=== PATIENT | male | born 1970 | race Caucasian/White ===

== ENCOUNTER → 2017-05-11 | Outpatient (CLI) | payer BC ==
[2016-01-26 15:57] VITALS: BP 137/95
[~2017-05-11] MED LIST: IOHEXOL 240 MG/ML 50ML VIAL. ONE; IOHEXOL 240 MG/ML 50ML VIAL. PO ONE; IOHEXOL 300 MG/ML 75 ML VIAL. IV ONE
--- NOTE | 2017-05-11 12:22 | RAD ---
CT of the abdomen and pelvis with contrast, 05/11/2017: History: Right lower quadrant pain Multidetector CT imaging was performed following oral and IV administration of contrast. No hepatic abnormality is detected. The gallbladder is unremarkable. No pancreatic abnormality is seen. The spleen is of normal size. The kidneys are unremarkable. No adrenal abnormality is detected. The abdominal aorta is of normal caliber. No abdominal or pelvic adenopathy is seen. Several small prostatic calcifications are noted. The bowel loops are not dilated. The appendix is not definitively visualized. No dilated appendix or pericecal inflammatory process is seen. No free fluid or free air is evident in the abdomen or pelvis. IMPRESSION: No acute abdominal or pelvic abnormality is detected. PQRS Compliance Statement: One or more of the following individualized dose reduction techniques were utilized for this examination: 1. Automated exposure control 2. Adjustment of the mA and/or kV according to patient size 3. Use of iterative reconstruction technique
== END | disposition home or self-care (01) ==
LOC: CT 10:38
PROVIDERS: ATTEND Family Medicine
DX: R19.01 Right upper quadrant abdominal swelling, mass and lump (principal); N42.89 Other specified disorders of prostate
CPT/HCPCS: 74177; Q9966